=== PATIENT | male | born 1955 | race Two or more races ===

== ENCOUNTER 2021-03-20 18:01 | Emergency (ER) | payer SELFPAY ==
[2021-03-20] MEDS ORDERED: Sodium Chloride 0.9% 10 ML Syringe FLUSH PRN (18:04)
--- NOTE | 2021-03-20 18:24 | EDM.PDOC ---
ED HPI GENERAL MEDICAL PROBLEM - General Chief Complaint: Neuro Symptoms/Deficits Stated Complaint: POSSIBLE STROKE? Time Seen by Provider: 03/20/21 18:01 Source of Information: Reports: EMS, EMS Notes Reviewed, Family History Limitations: Reports: Altered Mental Status, Language Barrier - History of Present Illness INITIAL COMMENTS - FREE TEXT/NARRATIVE: Carlitos, 65-year-old male, presents by ambulance with altered sensorium. He is unable to cooperate and follow commands. Was found seated at work on the floor at which time 911 call was placed for EMS. Possibly up to 1 hour, but no more than 1 hour since last seen healthy. Was working in the [employer] with extreme warmth secondary of environmental temperatures today. No other history obtainable. Onset: Today, Sudden Duration: Minutes: - Related Data Allergies Allergy/AdvReac Type Severity Reaction Status Date / Time No Known Allergies Allergy Verified 03/20/21 18:37 Past Medical History Cardiovascular History: Reports: Hypertension Social & Family History - Family History Family Medical History: Unobtainable ED ROS GENERAL - Review of Systems Review Of Systems: Unable To Obtain Reason Not Obtained: altered sensorium deficit ED EXAM, GENERAL - Physical Exam Exam: See Below Free Text/Narrative:: Somewhat responsive to pain stimuli but not completely appropriate. Scores a 28 on the NHS score. No injury is appreciated. Scalp is nontender no contusions abrasions. Pupils are 6 mm and sluggish to response. He does not follow command with light for reflex. Nondilated funduscopy is limited. Warm moist skin secondary have a heat with pink moist mucous membranes. Neck is soft supple I do not appreciate any rigidity nor lymphadenopathy. He is able to hold his head up with noted facial droop and seems to favor looking to his left. There may be slight droop to the right side of the face with no respiratory compromise, no speech. Speaks [place] son here acting as spindle frame carver with no favorable responses. Thorax is diminished but poor inspiratory effort is he does not follow command scattered rhonchi. Cardiac is regular do not appreciate murmur. Abdomen is rotund bowel sounds are present no tenderness elicited to examination. He moves his left upper extremity and nonpurposeful motion but will not hold it up when doing limb strength testing. There is no grasp to either hand as he is not following commands when spoken to by his son. There is no response nor command to the lower extremities. He does move slightly the right upper extremity into a supination position but is mostly flaccid. There is some motion to the lower extremities but again not purposeful and does not follow command. #1 Interpretation EKG Date: 03/20/21 Time: 18:11 Rhythm: NSR Rate (Beats/Min): 93 [place]: Normal P-Wave: Present QRS: Other ST-T: Elevated QT: Prolonged Comparison: NA - No Prior EKG Course - Orders/Labs/Meds Orders: Active Orders 24 hr Category Date Time Status Accu Check [Blood Glucose Check, Bedside] [] ONETIME Care 03/20/21 18:05 Active Insert Howe Catheter [Insert Urinary Catheter] [OM.PC] Care 03/20/21 18:30 Ordered Q24H Peripheral IV Care [] . DIRECTED Care 03/20/21 18:04 Active Urinary Catheter Assessment [] ASDIRECTED Care 03/20/21 18:17 Active CULTURE BLOOD [BC] Stat Lab 03/20/21 18:04 Ordered CULTURE BLOOD [BC] Stat Lab 03/20/21 18:04 Ordered PTT,PARTIAL THROMBOPLSTIN TIME [COAG] Stat Lab 03/20/21 18:10 Received Sodium Chloride 0.9% [Saline Flush] Med 03/20/21 18:04 Active 10 ml FLUSH Q8HR PRN Blood Culture x2 Reflex Set [OM.PC] Stat Oth 03/20/21 18:04 Ordered Peripheral IV Insertion Adult [OM.PC] Stat Oth 03/20/21 18:04 Ordered Medication Orders Sodium Chloride (Sodium Chloride 0.9% 10 Ml Syringe) 10 ml FLUSH Q8HR PRN PRN Reason: keep vein open Labs: Laboratory Tests 03/20/21 03/20/21 03/20/21 Range/Units 18:10 18:10 18:10 WBC 9.94 (5.00-10.00) 10^3/uL RBC 5.38 (4.50-6.00) 10^6/uL Hgb 16.1 (13.0-17.0) g/dL Hct 46.7 (40.0-52.0) % MCV 86.8 (82.0-92.0) fL MCH 29.9 (27.0-31.0) pg MCHC 34.5 (32.0-36.0) g/dL RDW 12.2 (11.5-14.5) % Plt Count 284 (150-400) 10^3/uL MPV 9.2 (7.4-10.4) fL Immature Gran % (Auto) 0.2 (0.0-5.0) % Neut % (Auto) 59.2 (50.0-70.0) % Lymph % (Auto) 27.8 (20.0-40.0) % [place] % (Auto) 4.3 (2.0-8.0) % Eos % (Auto) 7.3 H (1.0-3.0) % Baso % (Auto) 1.2 H (0.0-1.0) % Neut # (Auto) 5.88 (2.50-7.00) 10^3/uL Lymph # (Auto) 2.76 (1.00-4.00) 10^3/uL [place] # (Auto) 0.43 (0.10-0.80) 10^3/uL Eos # (Auto) 0.73 H (0.10-0.30) 10^3/uL Baso # (Auto) 0.12 H (0.00-0.10) 10^3/uL Immature Gran # (Auto) 0.02 (0.00-0.50) 10^3/uL D-Dimer, Quantitative 867 H (<400) ng/mL Sodium 138 (136-145) mmol/L Potassium 4.3 (3.5-5.1) mmol/L Chloride 101 (98-107) mmol/L Carbon Dioxide 24.3 (21.0-32.0) mmol/L Anion Gap 17.0 H (5-15) mmol/L BUN 17 (7-18) mg/dL Creatinine 1.02 (0.51-1.17) mg/dL Est Cr Clr Drug Dosing 58.88 mL/min Estimated GFR (MDRD) > 60 mL/min Glucose 237 H (70-140) mg/dL POC Glucose (70-140) mg/dL Lactic Acid (0.4-2.0) mmol/L Calcium 9.1 (8.7-10.3) mg/dL Total Bilirubin 0.2 (0.2-1.0) mg/dL AST 16 (15-37) U/L ALT 17 (14-63) U/L Alkaline Phosphatase 110 (46-116) U/L Troponin I High Sens 20.200 (0-76.000) pg/mL Total Protein 9.1 H (6.4-8.2) g/dL Albumin 3.31 L (3.40-5.00) g/dL Specimen Type Urine Color (YELLOW) Urine Appearance (CLEAR) Urine pH (5.0-9.0) Ur Specific [place] (1.005-1.030) Urine Protein (NEGATIVE) mg/dL Urine Glucose (UA) (NEGATIVE) mg/dL Urine Ketones (NEGATIVE) mg/dL Urine Occult Blood (NEGATIVE) Urine Nitrite (NEGATIVE) Urine Bilirubin (NEGATIVE) Urine Urobilinogen (0.2-1.0) E.U./dL Ur Leukocyte Esterase (NEGATIVE) Urine RBC (0-5) /HPF Urine WBC (0-5) /HPF Ur Epithelial Cells /LPF Urine Bacteria (NONE TO FEW) /HPF Urine Mucus (NEGATIVE) /LPF Urine Opiates Screen (NEGATIVE) Ur Oxycodone Screen (NEGATIVE) Urine Methadone Screen (NEGATIVE) Ur Propoxyphene Screen (NEGATIVE) Ur Barbiturates Screen (NEGATIVE) Ur Tricyclics Screen (NEGATIVE) Ur Phencyclidine Scrn (NEGATIVE) Ur Amphetamine Screen (NEGATIVE) U Methamphetamines Scrn (NEGATIVE) U Benzodiazepines Scrn (NEGATIVE) U Cocaine Metab Screen (NEGATIVE) U Marijuana (THC) Screen (NEGATIVE) 03/20/21 03/20/21 03/20/21 Range/Units 18:10 18:12 18:15 WBC (5.00-10.00) 10^3/uL RBC (4.50-6.00) 10^6/uL Hgb (13.0-17.0) g/dL Hct (40.0-52.0) % MCV (82.0-92.0) fL MCH (27.0-31.0) pg MCHC (32.0-36.0) g/dL RDW (11.5-14.5) % Plt Count (150-400) 10^3/uL MPV (7.4-10.4) fL Immature Gran % (Auto) (0.0-5.0) % Neut % (Auto) (50.0-70.0) % Lymph % (Auto) (20.0-40.0) % [place] % (Auto) (2.0-8.0) % Eos % (Auto) (1.0-3.0) % Baso % (Auto) (0.0-1.0) % Neut # (Auto) (2.50-7.00) 10^3/uL Lymph # (Auto) (1.00-4.00) 10^3/uL [place] # (Auto) (0.10-0.80) 10^3/uL Eos # (Auto) (0.10-0.30) 10^3/uL Baso # (Auto) (0.00-0.10) 10^3/uL Immature Gran # (Auto) (0.00-0.50) 10^3/uL D-Dimer, Quantitative (<400) ng/mL Sodium (136-145) mmol/L Potassium (3.5-5.1) mmol/L Chloride (98-107) mmol/L Carbon Dioxide (21.0-32.0) mmol/L Anion Gap (5-15) mmol/L BUN (7-18) mg/dL Creatinine (0.51-1.17) mg/dL Est Cr Clr Drug Dosing mL/min Estimated GFR (MDRD) mL/min Glucose (70-140) mg/dL POC Glucose 229 H (70-140) mg/dL Lactic Acid 2.0 (0.4-2.0) mmol/L Calcium (8.7-10.3) mg/dL Total Bilirubin (0.2-1.0) mg/dL AST (15-37) U/L ALT (14-63) U/L Alkaline Phosphatase (46-116) U/L Troponin I High Sens (0-76.000) pg/mL Total Protein (6.4-8.2) g/dL Albumin (3.40-5.00) g/dL Specimen Type Ur[place]ath Urine Color Yellow (YELLOW) Urine Appearance Clear (CLEAR) Urine pH 6.5 (5.0-9.0) Ur Specific [place] >= 1.030 (1.005-1.030) Urine Protein >=300 H (NEGATIVE) mg/dL Urine Glucose (UA) 500 H (NEGATIVE) mg/dL Urine Ketones Negative (NEGATIVE) mg/dL Urine Occult Blood Negative (NEGATIVE) Urine Nitrite Negative (NEGATIVE) Urine Bilirubin Negative (NEGATIVE) Urine Urobilinogen 0.2 (0.2-1.0) E.U./dL Ur Leukocyte Esterase Negative (NEGATIVE) Urine RBC 0-5 (0-5) /HPF Urine WBC 0-5 (0-5) /HPF Ur Epithelial Cells Not seen /LPF Urine Bacteria Not seen (NONE TO FEW) /HPF Urine Mucus Rare H (NEGATIVE) /LPF Urine Opiates Screen (NEGATIVE) Ur Oxycodone Screen (NEGATIVE) Urine Methadone Screen (NEGATIVE) Ur Propoxyphene Screen (NEGATIVE) Ur Barbiturates Screen (NEGATIVE) Ur Tricyclics Screen (NEGATIVE) Ur Phencyclidine Scrn (NEGATIVE) Ur Amphetamine Screen (NEGATIVE) U Methamphetamines Scrn (NEGATIVE) U Benzodiazepines Scrn (NEGATIVE) U Cocaine Metab Screen (NEGATIVE) U Marijuana (THC) Screen (NEGATIVE) 03/20/21 Range/Units 18:15 WBC (5.00-10.00) 10^3/uL RBC (4.50-6.00) 10^6/uL Hgb (13.0-17.0) g/dL Hct (40.0-52.0) % MCV (82.0-92.0) fL MCH (27.0-31.0) pg MCHC (32.0-36.0) g/dL RDW (11.5-14.5) % Plt Count (150-400) 10^3/uL MPV (7.4-10.4) fL Immature Gran % (Auto) (0.0-5.0) % Neut % (Auto) (50.0-70.0) % Lymph % (Auto) (20.0-40.0) % [place] % (Auto) (2.0-8.0) % Eos % (Auto) (1.0-3.0) % Baso % (Auto) (0.0-1.0) % Neut # (Auto) (2.50-7.00) 10^3/uL Lymph # (Auto) (1.00-4.00) 10^3/uL [place] # (Auto) (0.10-0.80) 10^3/uL Eos # (Auto) (0.10-0.30) 10^3/uL Baso # (Auto) (0.00-0.10) 10^3/uL Immature Gran # (Auto) (0.00-0.50) 10^3/uL D-Dimer, Quantitative (<400) ng/mL Sodium (136-145) mmol/L Potassium (3.5-5.1) mmol/L Chloride (98-107) mmol/L Carbon Dioxide (21.0-32.0) mmol/L Anion Gap (5-15) mmol/L BUN (7-18) mg/dL Creatinine (0.51-1.17) mg/dL Est Cr Clr Drug Dosing mL/min Estimated GFR (MDRD) mL/min Glucose (70-140) mg/dL POC Glucose (70-140) mg/dL Lactic Acid (0.4-2.0) mmol/L Calcium (8.7-10.3) mg/dL Total Bilirubin (0.2-1.0) mg/dL AST (15-37) U/L ALT (14-63) U/L Alkaline Phosphatase (46-116) U/L Troponin I High Sens (0-76.000) pg/mL Total Protein (6.4-8.2) g/dL Albumin (3.40-5.00) g/dL Specimen Type Urine Color (YELLOW) Urine Appearance (CLEAR) Urine pH (5.0-9.0) Ur Specific [place] (1.005-1.030) Urine Protein (NEGATIVE) mg/dL Urine Glucose (UA) (NEGATIVE) mg/dL Urine Ketones (NEGATIVE) mg/dL Urine Occult Blood (NEGATIVE) Urine Nitrite (NEGATIVE) Urine Bilirubin (NEGATIVE) Urine Urobilinogen (0.2-1.0) E.U./dL Ur Leukocyte Esterase (NEGATIVE) Urine RBC (0-5) /HPF Urine WBC (0-5) /HPF Ur Epithelial Cells /LPF Urine Bacteria (NONE TO FEW) /HPF Urine Mucus (NEGATIVE) /LPF Urine Opiates Screen Negative (NEGATIVE) Ur Oxycodone Screen Negative (NEGATIVE) Urine Methadone Screen Negative (NEGATIVE) Ur Propoxyphene Screen Negative (NEGATIVE) Ur Barbiturates Screen Negative (NEGATIVE) Ur Tricyclics Screen Negative (NEGATIVE) Ur Phencyclidine Scrn Negative (NEGATIVE) Ur Amphetamine Screen Negative (NEGATIVE) U Methamphetamines Scrn Negative (NEGATIVE) U Benzodiazepines Scrn Negative (NEGATIVE) U Cocaine Metab Screen Negative (NEGATIVE) U Marijuana (THC) Screen Negative (NEGATIVE) Meds: Medications Generic Name Dose Route Start Last Admin Trade Name Norah PRN Reason Stop Dose Admin Sodium Chloride 10 ml 03/20/21 18:04 Sodium Chloride 0.9% 10 Ml Syringe FLUSH Q8HR PRN keep vein open - Re-Assessments/Exams Free Text/Narrative Re-Assessment/Exam: 03/20/21 19:07 Discussion in person with Carlitos's son. No evidence of intracranial bleeding and the stroke neurologist at [facility] recommended the TPA infusion. There were no blatant contraindications nor any risk factors per history of his son that would disqualify him as a TPA candidate. [facility] will be arriving for transport to [place] in [place]. Completion of labs pending at this time. Agreed for acceptance to [place] acute stroke protocol per Dr. Roberts. Departure - Departure Time of Disposition: 19:09 Disposition: DC/Tfer to Acute Hospital 02 Condition: Fair Clinical Impression: Stroke determined by clinical assessment, Altered sensorium, Hyperglycemia - Discharge Information *PRESCRIPTION DRUG MONITORING PROGRAM REVIEWED*: Not Applicable *COPY OF PRESCRIPTION DRUG MONITORING REPORT IN PATIENT CELESTINE: Not Applicable Forms: ED Department Discharge Additional Instructions: Transfer per [facility]. - Problem List & Annotations (1) Altered sensorium SNOMED Code(s): 3680432 Code(s): R40.4 - TRANSIENT ALTERATION OF AWARENESS Status: Acute Current Visit: Yes (2) Hyperglycemia SNOMED Code(s): 89836341 Code(s): R73.9 - HYPERGLYCEMIA, UNSPECIFIED Status: Acute Current Visit: Yes (3) Stroke determined by clinical assessment SNOMED Code(s): 549087364, 851441001 Code(s): I63.9 - CEREBRAL INFARCTION, UNSPECIFIED Status: Acute Priority: High Current Visit: Yes (4) Abnormal finding on EKG SNOMED Code(s): 964000453 Code(s): R94.31 - ABNORMAL ELECTROCARDIOGRAM [ECG] [EKG] Status: Acute Priority: High Current Visit: Yes (5) Elevated d-dimer SNOMED Code(s): 255446012 Code(s): R79.89 - OTHER SPECIFIED ABNORMAL FINDINGS OF BLOOD CHEMISTRY Status: Acute Priority: High Current Visit: Yes - Problem List Review Problem List Initiated/Reviewed/Updated: Yes - My Orders Last 24 Hours: My Active Orders 03/20/21 18:04 Peripheral IV Care [RC] . DIRECTED CULTURE BLOOD [BC] Stat CULTURE BLOOD [BC] Stat Sodium Chloride 0.9% [Saline Flush] 10 ml FLUSH Q8HR PRN Blood Culture x2 Reflex Set [OM.PC] Stat Peripheral IV Insertion Adult [OM.PC] Stat 03/20/21 18:05 Accu Check [Blood Glucose Check, Bedside] [RC] ONETIME 03/20/21 18:10 PTT,PARTIAL THROMBOPLSTIN TIME [COAG] Stat 03/20/21 18:17 Urinary Catheter Assessment [RC] ASDIRECTED 03/20/21 18:30 Insert Howe Catheter [Insert Urinary Catheter] [OM.PC] Q24H - Assessment/Plan Last 24 Hours: My Active Orders 03/20/21 18:04 Peripheral IV Care [RC] . DIRECTED CULTURE BLOOD [BC] Stat CULTURE BLOOD [BC] Stat Sodium Chloride 0.9% [Saline Flush] 10 ml FLUSH Q8HR PRN Blood Culture x2 Reflex Set [OM.PC] Stat Peripheral IV Insertion Adult [OM.PC] Stat 03/20/21 18:05 Accu Check [Blood Glucose Check, Bedside] [RC] ONETIME 03/20/21 18:10 PTT,PARTIAL THROMBOPLSTIN TIME [COAG] Stat 03/20/21 18:17 Urinary Catheter Assessment [RC] ASDIRECTED 03/20/21 18:30 Insert Howe Catheter [Insert Urinary Catheter] [OM.PC] Q24H Plan: Transfer per [facility].
--- NOTE | 2021-03-20 18:45 | CT ---
[id number] CT/CT Head Stroke Protocol EXAM: CT Head Stroke Protocol CLINICAL DATA: ALTERED SENSORIUM. COMPARISON STUDY: None FINDINGS: No intracranial hemorrhage, extra-axial fluid collection, mass, or acute ischemia. No hydrocephalus. White matter hypodensity and parenchymal atrophy. Findings are consistent with chronic small vessel disease. Calcified atherosclerotic plaque in the intracranial segments of the internal carotid arteries. Mineralization in the bilateral basal ganglia. Calvarium intact. Paranasal sinuses and mastoid air cells are clear. IMPRESSION: No acute intracranial findings. Other findings are described above. Results relayed to Jay Burleson at time of dictation. Pascual Kemp MD 03/20/21 [id number] Thank you for allowing us to participate in the care of your patient.
[2021-03-20 18:47] LABS: CHLORIDE,CL 101 mmol/L (98-107); SODIUM,NA 138 mmol/L (136-145)
--- NOTE | 2021-03-20 18:47 | CR ---
[id number] RAD/RAD Chest PA or AP 1V EXAM: RAD Chest PA or AP 1V INDICATION: ALTERED SENSORIUM. COMPARISON: None. DISCUSSION/IMPRESSION: Cardiomediastinal silhouette is normal in size and contour. Subtle parenchymal opacification in the right lung base. Findings are nonspecific and possibly artifact from overlapping structures of the chest wall and inferior hilum. This is not seen on one of the views, making artifact most likely. However, if there are signs of infection, this could represent developing pneumonia. Pascual Kemp MD 03/20/21 4768 Thank you for allowing us to participate in the care of your patient.
[2021-03-20 18:55] LABS: BARBITURATE SCREEN,URINE NEGATIVE (NEGATIVE); BENZODIAZEPINES SCREEN,URINE NEGATIVE (NEGATIVE); TCA SCREEN,URINE NEGATIVE (NEGATIVE); THC SCREEN,URINE 50 NG/ML NEGATIVE (NEGATIVE)
[2021-03-20] MEDS ORDERED: ALTEPLASE IV ONE (19:00)
[2021-03-20] MEDS ORDERED: Sodium Chloride 0.9% 0 ML ONE (22:32)
[2021-03-20] MEDS ORDERED: Sodium Chloride 0.9% 50 ML ONE (22:34)
== END 2021-03-20 19:55 ==
LOC: KA.ED 18:01
DX: I63.9 Cerebral infarction, unspecified (principal); R41.82 Altered mental status, unspecified; R73.9 Hyperglycemia, unspecified; I10 Essential (primary) hypertension
CPT/HCPCS: 36415; 37195; 51702; 70450; 71045; 80053; 80305-QW; 81001; 82947; 83605; 84484; 85025; 85379; 85730; 87040; 93005; 99284; 99285-25; J2997